=== PATIENT | female | born 2005 | race Two or more races ===

== ENCOUNTER 2024-07-30 16:46 | Emergency (ER) | payer OTHER ==
[~2024-07-30] VITALS: Ht 149.9 cm; Wt 72.6 kg
[2024-07-30 17:04] VITALS: BP 110/77; O2SAT 100
[2024-07-30] MEDS ORDERED: KETOROLAC TROMETHAMINE 60 MG VIAL IM STA (19:56)
[2024-07-30] MEDS ORDERED: ACETAMINOPHEN 500 MG GEL..CAP PO STA (19:57)
== END 2024-07-30 22:18 | disposition home or self-care (01) ==
LOC: ER 16:48
DX: S82.852A Displaced trimalleolar fracture of left lower leg, initial encounter for closed fracture (principal); W18.39XA Other fall on same level, initial encounter; Y93.89 Activity, other specified; Y92.89 Other specified places as the place of occurrence of the external cause; Z91.013 Allergy to seafood